=== PATIENT | male | born 1945 | race Caucasian/White ===

== ENCOUNTER 2017-12-25 19:46 | Outpatient (CLI) | payer MEDICARE, OTHER ==
--- NOTE | 2017-12-26 08:39 | Ultrasound Report ---
Procedure Date: 12/25/2017 Accession Number: [id number] / [id number] Procedure: US - Duplex Ext Veins Left CPT Code: FULL RESULT: EXAM: LEFT LOWER EXTREMITY VENOUS ULTRASOUND EXAM DATE: 12/25/2017 08:18 PM. CLINICAL HISTORY: LEFT CALF PAIN. COMPARISON: None. TECHNIQUE: Real-time sonographic vascular imaging was performed by the bilingual trainer through the lower extremity utilizing both color-flow and Doppler spectral analysis. Multiple financial service representative static images were saved for review. FINDINGS: Common Femoral Vein (CFV): Normal. CFV-GSV Junction: Normal. Profunda Femoral Vein (PFV): Normal. Femoral Vein (FV) Prox: Normal. Femoral Vein (FV) Mid: Normal. Femoral Vein (FV) Dist: Normal. Popliteal Vein: Normal. Posterior Tibial Veins: Normal. Peroneal Veins: Normal. Contralateral Side CFV: Normal. Other: None. IMPRESSION: No evidence for deep venous thrombosis. RADIA
== END 2017-12-25 19:47 | disposition home or self-care (01) ==
LOC: DI 19:46
PROVIDERS: ATTEND Nurse Practitioner Family
DX: M79.662 Pain in left lower leg (principal)

== ENCOUNTER 2018-08-14 16:04 | Emergency (ER) | payer MEDICARE, OTHER ==
[2018-08-14] MEDS ORDERED: HYDROcod/ACETAM 5/325 MG TABLET PO STA (16:36)
--- NOTE | 2018-08-14 16:38 | ED Physician Documentation ---
PD HPI LOWER EXT INJURY - Stated complaint Stated Complaint: R LEG PX - Chief complaint Chief Complaint: Ext Problem - History obtained from History obtained from: Patient - History of Present Illness PD HPI LOW EXT INJURY LOCATION: Other (He had some mild discomfort in his right leg over the last 24 hours but he was going up some stairs, just a couple of stairs to get into his house and he felt a pop, internally in the upper calf posteriorly on the right and pain was severe. He was able to walk and bear weight after that but he had to hobble. He did not fall.) Review of Systems Constitutional: reports: Reviewed and negative Nose: reports: Reviewed and negative Cardiac: reports: Reviewed and negative PD PAST MEDICAL HISTORY - Past Medical History Cardiovascular: Hypertension, High cholesterol, Coronary artery disease, [place] Respiratory: Sleep apnea, CPAP use Endocrine/Autoimmune: None GI: GERD, Hiatal hernia : None HEENT: None Psych: Anxiety Musculoskeletal: Chronic back pain Derm: None - Past Surgical History Past Surgical History: Yes General: Appendectomy, Hiatal hernia repair Cardiovascular: CABG, Coronary stent Derm: Skin cancer surgery - Present Medications Home Medications: Ambulatory Orders Medication Instructions Recorded Confirmed HYDROcod/ACETAM 5/325 [Vicodin 1 each PO PRN PRN 09/06/13 08/14/18 5/325] Lisinopril [Zestril] 0.5 tab PO BID 09/06/13 08/14/18 Nitroglycerin 0.4 mg SL PRN PRN 03/17/14 08/14/18 Metoprolol Tartrate 25 mg PO BID #30 tablet 03/25/14 08/14/18 Aspirin 81 mg PO DAILY 08/14/18 08/14/18 Atorvastatin [Lipitor] 8 tab PO QPM 08/14/18 08/14/18 Hydrocodone/Acetaminophen 1 - 2 each PO Q6H PRN #14 tablet 08/14/18 [Hydrocodon-Acetaminophen 5-325] Isosorbide Mononitrate ER [Imdur] 30 mg PO DAILY 08/14/18 08/14/18 Loratadine 10 mg PO PRN PRN 08/14/18 08/14/18 Metoprolol Succinate 50 mg PO QPM 08/14/18 08/14/18 Naproxen 250 mg PO PRN PRN 08/14/18 08/14/18 Pantoprazole [Protonix] 40 mg PO BID 08/14/18 08/14/18 Sertraline [Zoloft] 50 mg PO QPM 08/14/18 08/14/18 - Allergies Allergies/Adverse Reactions: Allergies Allergy/AdvReac Type Severity Reaction Status Date / Time clopidogrel bisulfate * Allergy Severe Respiratory Verified 08/14/18 16:15 [From Plavix] lovastatin Allergy Respiratory Verified 08/14/18 16:15 morphine Allergy Nausea Verified 08/14/18 16:15 - Social History Does the pt smoke?: No Smoking Status: Never smoker Does the pt drink ETOH?: No Does the pt have substance abuse?: No - Immunizations Immunizations are current?: Yes Immunizations: TDAP current <10years - POLST Patient has POLST: No PD ED PE NORMAL - Vitals Vital signs reviewed: Yes - General General: Alert and oriented X 3, No acute distress - Extremities Extremities: Other (Mild tenderness to the upper calf posteriorly. There is no bony tenderness anteriorly or the knee or ankle I am unable to palpate pulses in the right foot, but I am able to Doppler monophasic waveforms in the DP and PT.) - Neuro Neuro: Alert and oriented X 3, Normal speech Results - Vitals Vitals: Vital Signs - 24 hr 08/14/18 08/14/18 08/14/18 16:09 16:28 16:40 Temperature 36.2 C L Heart Rate 38 L 75 71 Respiratory 18 18 Rate Blood Pressure 134/68 H 156/79 H O2 Saturation 96 97 96 08/14/18 18:17 Temperature 36.3 C L Heart Rate 63 Respiratory 24 Rate Blood Pressure 161/78 H O2 Saturation 96 Oxygen O2 Source Room air - Rads (name of study) Right leg ultrasound and tib-fib x-ray Radiology: EMP read contemporaneously (Both negative) Departure - Departure Disposition: 01 Home, Self Care Clinical Impression: Muscle strain of right lower leg Qualifiers: Encounter type: initial encounter Qualified Code(s): S86.911A - Strain of unspecified muscle(s) and tendon(s) at lower leg level, right leg, initial encounter Condition: Good Record reviewed to determine appropriate education?: Yes Instructions: ED Strain Muscle Ext Prescriptions: Hydrocodone/Acetaminophen [Hydrocodon-Acetaminophen 5-325] 1 - 2 each PO Q6H PRN #14 tablet PRN Reason: pain Comments: The x-ray is negative for bony problem and the ultrasound was negative for clot. Follow-up with your doctor in 2 days for recheck, consider physical therapy and orthopedic consultation if not improving. Your blood pressure was elevated today on check into the emergency department. This does not mean that you have hypertension, it is a common phenomenon to come to the emergency department and have elevated blood pressure. I recommend that you see your primary care physician within the week to have it rechecked when you are feeling better.
--- NOTE | 2018-08-14 17:36 | XRAY Report ---
Reason: leg pain Procedure Date: 08/14/2018 Accession Number: [id number] / [id number] Procedure: XR - Tib/Fib RT CPT Code: FULL RESULT: EXAM: RIGHT TIBIA/FIBULA RADIOGRAPHY EXAM DATE: 08/14/2018 05:12 PM. CLINICAL HISTORY: Leg pain. COMPARISON: None. TECHNIQUE: 2 views. FINDINGS: Bones: Normal. No fracture or bone lesion. Joints: The visualized knee and ankle joints are normal. No effusions. Soft Tissues: Normal. No soft tissue swelling. IMPRESSION: Normal tibia/fibula radiography. [facility]
--- NOTE | 2018-08-14 18:34 | Ultrasound Report ---
Reason: leg pain Procedure Date: 08/14/2018 Accession Number: [id number] / [id number] Procedure: US - Duplex Ext Veins Right CPT Code: FULL RESULT: EXAM: RIGHT LOWER EXTREMITY VENOUS ULTRASOUND EXAM DATE: 08/14/2018 06:04 PM. CLINICAL HISTORY: Leg pain. COMPARISON: None. TECHNIQUE: Real-time sonographic vascular imaging was performed by the hassock maker through the lower extremity utilizing both color-flow and Doppler spectral analysis. Multiple employee's representative static images were saved for review. FINDINGS: Common Femoral Vein (CFV): Normal. CFV-GSV Junction: Normal. Profunda Femoral Vein (PFV): Normal. Femoral Vein (FV) Prox: Normal. Femoral Vein (FV) Mid: Normal. Femoral Vein (FV) Dist: Normal. Popliteal Vein: Normal. Posterior Tibial Veins: Normal. Peroneal Veins: Normal. Contralateral Side CFV: Normal. Other: None. IMPRESSION: No evidence for deep venous thrombosis. [facility]
[2018-08-14 19:44] VITALS: BP 185/94
== END 2018-08-14 20:05 | disposition home or self-care (01) ==
LOC: ED 16:04
DX: S86.911A Strain of unspecified muscle(s) and tendon(s) at lower leg level, right leg, initial encounter (principal); X58.XXXA Exposure to other specified factors, initial encounter; Y93.39 Activity, other involving climbing, rappelling and jumping off; Y92.008 Other place in unspecified non-institutional (private) residence as the place of occurrence of the external cause; I10 Essential (primary) hypertension; Z79.82 Long term (current) use of aspirin
CPT/HCPCS: 73590; 93971; 99283; A9270

== ENCOUNTER 2018-12-18 11:32 | Outpatient (CLI) | payer MEDICARE, OTHER ==
[2018-12-18 11:50] LABS: CALCIUM 9.1 mg/dL (8.5-10.3)
== END 2018-12-18 11:33 | disposition home or self-care (01) ==
LOC: LAB 11:32
PROVIDERS: ATTEND Internal Medicine Cardiovascular Disease
DX: I10 Essential (primary) hypertension (principal)
CPT/HCPCS: 36415; 80048

== ENCOUNTER 2019-11-14 15:33 | Outpatient (CLI) | payer MEDICARE, OTHER ==
[2019-11-14 16:04] LABS: CALCIUM 9.1 mg/dL (8.5-10.3)
== END 2019-11-14 15:34 | disposition home or self-care (01) ==
LOC: LAB 15:33
PROVIDERS: ATTEND Internal Medicine Cardiovascular Disease
DX: I25.10 Atherosclerotic heart disease of native coronary artery without angina pectoris (principal)
CPT/HCPCS: 36415; 80048

== ENCOUNTER 2019-12-18 10:48 | Outpatient (CLI) | payer MEDICARE, OTHER ==
[2019-12-18 15:46] LABS: HB2 TOTAL 13.9 g/dL; HEMOGLOBIN A1C 0.82 g/dL; HEMOGLOBIN A1C % 7.5 % (4.6-6.2)
[2019-12-18 16:07] LABS: ALBUMIN 4.1 g/dL (3.2-5.5); ALBUMIN/GLOBULIN RATIO 1.2 (1.0-2.2); ALKALINE PHOSPHATASE 101 IU/L (42-121); ALT ALANINE AMINOTRANSFERASE 32 IU/L (10-60); AST ASPARTATE AMINOTRANSFERASE 21 IU/L (10-42); BILIRUBIN,TOTAL 0.9 mg/dL (0.2-1.0); BUN - BLOOD UREA NITROGEN 22 mg/dL (6-20); CALCIUM 9.1 mg/dL (8.5-10.3); CARBON DIOXIDE - CO2 27 mmol/L (21-32); CHLORIDE 105 mmol/L (101-111); CHOL/HDL RATIO 3.2 (<5.0); CHOLESTEROL 112 mg/dL; CREATININE 1.1 mg/dL (0.6-1.2); GLUCOSE 135 mg/dL (70-100); HDL CHOLESTEROL 35 mg/dL; LDL CHOLESTEROL,CALCULATED 62 mg/dL; LDL/HDL RATIO 1.8 (<3.6); SODIUM 137 mmol/L (135-145); TOTAL PROTEIN 7.5 g/dL (6.7-8.2); VLDL CHOLESTEROL 15 mg/dL
== END 2019-12-18 10:49 | disposition home or self-care (01) ==
LOC: LAB.S 10:48
PROVIDERS: ATTEND Family Medicine
DX: E78.2 Mixed hyperlipidemia (principal); E11.9 Type 2 diabetes mellitus without complications; I10 Essential (primary) hypertension
CPT/HCPCS: 36415; 80053; 80061; 83036; 83721

== ENCOUNTER 2020-02-14 15:46 | Outpatient (CLI) | payer MEDICARE, OTHER | END 2020-02-14 15:47 | disposition short-term general hospital (02) | LOC: EMS 15:46 | PROVIDERS: ATTEND Surgery | DX: R07.9 Chest pain, unspecified (principal); R42 Dizziness and giddiness | CPT/HCPCS: A0425; A0427 ==

== ENCOUNTER 2020-10-26 16:10 | Emergency (ER) | payer MEDICARE, OTHER ==
[2020-10-26 17:10] LABS: BASOPHILS # (AUTO) 0.1 10^3/uL (0.0-0.1); BASOPHILS % (AUTO) 0.5 %; EOSINOPHILS # (AUTO) 0.1 10^3/uL (0.0-0.7); HGB - HEMOGLOBIN 10.3 g/dL (14.0-18.0); LYMPHOCYTES # (AUTO) 1.9 10^3/uL (1.5-3.5); LYMPHOCYTES % (AUTO) 19.5 %; MEAN CORPUSCULAR HEMOGLOBIN 31.9 pg (27.0-31.0); MEAN CORPUSCULAR HGB CONC 33.2 g/dL (32.0-36.0); MEAN PLATELET VOLUME 10.8 fL (7.4-11.4); MONOCYTES # (AUTO) 0.8 10^3/uL (0.0-1.0); NEUTROPHILS # (AUTO) 6.9 10^3/uL (1.5-6.6); NEUTROPHILS % (AUTO) 69.8 %; PLT - PLATELET COUNT 250 10^3/uL (130-450); RED BLOOD COUNT 3.23 10^6/uL (4.70-6.10); RED CELL DISTRIBUTION WIDTH 13.2 % (12.0-15.0); WHITE BLOOD COUNT 9.9 x10^3/uL (4.8-10.8)
[2020-10-26 17:53] LABS: ALBUMIN/GLOBULIN RATIO 1.4 (1.0-2.2); BILIRUBIN,TOTAL 0.9 mg/dL (0.2-1.0); CALCIUM 9.1 mg/dL (8.5-10.3); CREATININE 1.3 mg/dL (0.6-1.2); TOTAL PROTEIN 6.9 g/dL (6.7-8.2)
[2020-10-26] MEDS ORDERED: SODIUM CHLORIDE 0.9% 1,000 ML IV STA (18:52)
[2020-10-26] MEDS ORDERED: IOPAMIDOL-300 100 ML VIAL ONE (19:00)
[2020-10-26 19:29] LABS: FECAL OCCULT BLOOD (FIT) POSITIVE (NEGATIVE)
[2020-10-26 20:10] LABS: BILIRUBIN,URINE NEGATIVE (NEGATIVE); GLUCOSE, URINE (UA) NEGATIVE (NEGATIVE); KETONES,URINE (UA) NEGATIVE (NEGATIVE); LEUKOCYTE ESTERASE, URINE NEGATIVE (NEGATIVE); NITRITE,URINE NEGATIVE (NEGATIVE); OCCULT BLOOD,URINE NEGATIVE (NEGATIVE); PROTEIN,URINE NEGATIVE (NEGATIVE); UROBILINOGEN,URINE 0.2 (NORMAL) E.U./dL (NORMAL)
[2020-10-26] MEDS ORDERED: IOPAMIDOL-300 100 ML VIAL IVP ONE (20:12)
[2020-10-26 20:17] LABS: CLARITY,URINE CLEAR (CLEAR)
--- NOTE | 2020-10-26 20:43 | CT Report ---
PROCEDURE: Abdomen/Pelvis W INDICATIONS: s/p colonoscopy with black tarry stool CONTRAST: IV CONTRAST: Isovue 300 ml: 100 PO CONTRAST: *NO PO CONTRAST TECHNIQUE: After the administration of intravenous contrast, 5 mm thick sections acquired from the diaphragms to the symphysis. 5 mm thick coronal and sagittal reformats were acquired. For radiation dose reducti on, the following was used: automated exposure control, adjustment of mA and/or kV according to ronda ent size. COMPARISON: CT abdomen pelvis 03/15/2014 FINDINGS: Image quality: Excellent. ABDOMEN: Lung bases: Calcified left lower lobe granuloma. Heart size is enlarged. Solid organs: Liver and spleen are normal in size and enhancement. Gallbladder is unremarkable. Bi liary system is non dilated. Pancreas enhances normally. Unchanged appearance of small nodularity wi thin the left adrenal gland. Kidneys demonstrate normal size and enhancement, without hydronephrosis. Peritoneum and bowel: Bowel loops demonstrate normal wall thickness and caliber. No free fluid or a ir. Colonic diverticula are present without inflammatory change. Nodes and vessels: No retroperitoneal or mesenteric adenopathy by size criteria. Aorta and inferior vena cava are normal in size. Miscellaneous: No ventral hernias. Mild hiatal hernia. PELVIS: Genitourinary: Bladder wall thickness is normal. Miscellaneous: No inguinal hernias or adenopathy. Bones: No suspicious bony lesions. Unchanged L1 compression deformity. IMPRESSION: 1. Diverticulosis. 2. No free air or free fluid. Reviewed by: Cailin Espinoza MD on 10/26/2020 8:41 PM PDT Approved by: Cailin Espinoza MD on 10/26/2020 8:41 PM PDT Station ID: [id number]
[2020-10-26 22:15] VITALS: BP 107/56
--- NOTE | 2020-10-26 23:00 | ED Physician Documentation ---
History of Present Illness - Stated complaint Stated Complaint: fall,dizzy,black stool,soa,blurry vision - Chief complaint Chief Complaint: Neuro - History obtained from History obtained from: Patient - Additonal information Additional information: 75yM with pmh mi s/p cabg and stents, dm2, cva, p/w lightheadedness intermittent over the past 2 days as well as black tarry stools and diarrhea since having a colonoscopy last monday. patient had [facility] done at [facility]. he states he became lightheaded this afternoon and his legs gave out so that he went to the floor on his bottom. denies injury or HT. denies cp, sob n/v/fever. Review of Systems Ten Systems: 10 systems reviewed and negative Constitutional: denies: Fever Cardiac: denies: Chest pain / pressure Respiratory: denies: Dyspnea GI: reports: Diarrhea, Bloody / black stool. denies: Abdominal Pain, Nausea PD PAST MEDICAL HISTORY - Past Medical History Cardiovascular: Hypertension, High cholesterol, Coronary artery disease, [place] Respiratory: Sleep apnea, CPAP use Endocrine/Autoimmune: None GI: GERD, Hiatal hernia : None HEENT: None Psych: Anxiety Musculoskeletal: Osteoarthritis, Chronic back pain Derm: None - Past Surgical History Past Surgical History: Yes General: Appendectomy, Hiatal hernia repair Cardiovascular: CABG, Coronary stent Derm: Skin cancer surgery - Present Medications Home Medications: Ambulatory Orders Medication Instructions Recorded Confirmed lisinopriL [Zestril] 40 mg PO BID 09/06/13 10/26/20 Nitroglycerin 0.6 mg SL PRN PRN 03/17/14 10/26/20 Aspirin 81 mg PO DAILY 08/14/18 10/26/20 Atorvastatin [Lipitor] 80 mg PO QPM 08/14/18 10/26/20 Isosorbide Mononitrate ER [Imdur] 120 mg PO DAILY 08/14/18 10/26/20 Loratadine 10 mg PO PRN PRN 08/14/18 10/26/20 Metoprolol Succinate 50 mg PO BID 08/14/18 10/26/20 Naproxen 250 mg PO PRN PRN 08/14/18 10/26/20 Pantoprazole [Protonix] 40 mg PO BID 08/14/18 10/26/20 Sertraline [Zoloft] 50 mg PO QPM 08/14/18 10/26/20 Furosemide 20 mg PO DAILY 12/20/19 10/26/20 Metformin HCl 500 mg PO BIDWM 12/20/19 10/26/20 Ticagrelor [Brilinta] 90 mg PO BID 12/20/19 10/26/20 Gabapentin [Gralise] 1 tab PO BID 10/26/20 10/26/20 - Allergies Allergies/Adverse Reactions: Allergies Allergy/AdvReac Type Severity Reaction Status Date / Time clopidogrel bisulfate * Allergy Severe Respiratory Verified 10/26/20 16:33 [From Plavix] benazepril [From Lotensin] Allergy Anaphylaxis Verified 10/26/20 16:33 lovastatin Allergy Respiratory Verified 10/26/20 16:33 morphine Allergy Nausea Verified 10/26/20 16:33 - Social History Does the pt smoke?: No Smoking Status: Never smoker Does the pt drink ETOH?: No Does the pt have substance abuse?: No - Immunizations Immunizations are current?: Yes Immunizations: TDAP current <10years - POLST Patient has POLST: No PD ED PE NORMAL - Vitals Vital signs reviewed: Yes - General General: Alert and oriented X 3, No acute distress, Well developed/nourished - HEENT HEENT: Atraumatic, PERRL, EOMI - Neck Neck: Supple, no meningeal sign - Cardiac Cardiac: RRR - Respiratory Respiratory: No respiratory distress, Clear bilaterally - Abdomen Abdomen: Non tender, Non distended - Rectal Rectal: Other (dark brown stool on exam. FOBT+) - Derm Derm: Normal color, Warm and dry - Extremities Extremities: No deformity - Neuro Neuro: Alert and oriented X 3 - Psych Psych: Normal mood, Normal affect Results - Vitals Vitals: Vital Signs - 24 hr 10/26/20 10/26/20 10/26/20 16:28 17:44 20:07 Temperature 35.9 C L Heart Rate 66 59 L 60 Respiratory 14 13 20 Rate Blood Pressure 108/63 112/56 L 105/51 L O2 Saturation 98 98 99 10/26/20 22:14 Temperature Heart Rate 61 Respiratory 16 Rate Blood Pressure 107/56 L O2 Saturation 98 Oxygen O2 Source Room air - Labs Labs: Laboratory Tests 10/26/20 10/26/20 10/26/20 16:58 16:58 18:54 WBC 9.9 RBC 3.23 L Hgb 10.3 L Hct 31.0 L MCV 96.0 H MCH 31.9 H MCHC 33.2 RDW 13.2 Plt Count 250 MPV 10.8 Neut # (Auto) 6.9 H Lymph # (Auto) 1.9 [place] # (Auto) 0.8 Eos # (Auto) 0.1 Baso # (Auto) 0.1 Absolute Nucleated RBC 0.00 Nucleated RBC % 0.0 Sodium 137 Potassium 4.0 Chloride 104 Carbon Dioxide 24 Anion Gap 9.0 BUN 42 H Creatinine 1.3 H Estimated GFR (MDRD) 54 L Glucose 149 H Calcium 9.1 Total Bilirubin 0.9 AST 22 ALT 34 Alkaline Phosphatase 69 Total Protein 6.9 Albumin 4.0 Globulin 2.9 Albumin/Globulin Ratio 1.4 Lipase 35 Urine Color Urine Clarity Urine pH Ur Specific [place] Urine Protein Urine Glucose (UA) Urine Ketones Urine Occult Blood Urine Nitrite Urine Bilirubin Urine Urobilinogen Ur Leukocyte Esterase Ur Microscopic Review Urine Culture Comments Stl Occult Blood (IFOB) POSITIVE A 10/26/20 19:19 WBC RBC Hgb Hct MCV MCH MCHC RDW Plt Count MPV Neut # (Auto) Lymph # (Auto) [place] # (Auto) Eos # (Auto) Baso # (Auto) Absolute Nucleated RBC Nucleated RBC % Sodium Potassium Chloride Carbon Dioxide Anion Gap BUN Creatinine Estimated GFR (MDRD) Glucose Calcium Total Bilirubin AST ALT Alkaline Phosphatase Total Protein Albumin Globulin Albumin/Globulin Ratio Lipase Urine Color YELLOW Urine Clarity CLEAR Urine pH 5.0 Ur Specific [place] 1.020 Urine Protein NEGATIVE Urine Glucose (UA) NEGATIVE Urine Ketones NEGATIVE Urine Occult Blood NEGATIVE Urine Nitrite NEGATIVE Urine Bilirubin NEGATIVE Urine Urobilinogen 0.2 (NORMAL) Ur Leukocyte Esterase NEGATIVE Ur Microscopic Review NOT INDICATED Urine Culture Comments NOT INDICATED Stl Occult Blood (IFOB) PD MEDICAL DECISION MAKING - ED course ED course: 75yM presents with dizziness after colonoscopy on monday during which he had a polyp removed. patient had mild anemia in the emergency department with +FOBT. vital signs stable. patient asymptomatic in the ED. shared decision made to discharge home with primary care follow up as well as followup with the physician who did his colonoscopy. Patient states he will see his doctor in the AM. Strict return precautions given. Called the next morning for a follow up and he continues to be asymptomatic aside from mild lightheadedness. one episode of dark stool this morning. He has f/u appointment at 9:20am with Dr. Johnathan Self. I called Dr. Self's office to let him know of the patient's ED visit yesterday, his hemoglobin, and his mildly low diastolic blood pressure readings. Dr. Self says he should be able to get him in for outpatient endoscopy this week but if he has any hypotension in clinic or if expeditious outpatient endoscopy is not available he will send him back to us in the ED. Dr. albert is working today and I discussed with him as well to look out for the patient. Departure - Departure Disposition: 01 Home, Self Care Clinical Impression: Anemia, Black tarry stools Condition: Stable Instructions: ED Bleed UGI Stable Follow-Up: Randal Mckeon MD [Provider Admit Priv/Credential] - Comments: You were seen in the emergency department for black tarry stool and a drop in your hemoglobin. You should follow-up with your primary doctor tomorrow morning. You likely will need referral to gastroenterology for endoscopy. Please return to the emergency department if you have any of the symptoms that we discussed or if you have any new or worsening symptoms or other concerns. Discharge Date/Time: 10/26/20 23:08
== END 2020-10-26 23:08 | disposition home or self-care (01) ==
LOC: ED 16:10
DX: D64.9 Anemia, unspecified (principal); R19.5 Other fecal abnormalities; E11.9 Type 2 diabetes mellitus without complications; Z95.1 Presence of aortocoronary bypass graft; Z95.5 Presence of coronary angioplasty implant and graft; I10 Essential (primary) hypertension; I25.10 Atherosclerotic heart disease of native coronary artery without angina pectoris; I25.2 Old myocardial infarction
CPT/HCPCS: 36415; 74177; 80053; 81003; 82274; 83690; 85025; 93005; 96360; 99283; 99284; Q9967; 81001; 87086

== ENCOUNTER 2020-10-27 11:17 | Emergency (ER) | payer MEDICARE, OTHER ==
--- NOTE | 2020-10-27 11:39 | ED Physician Documentation ---
PD HPI ABD PAIN - Stated complaint Stated Complaint: DIZZY/FALLING - Chief complaint Chief Complaint: Abd Pain - History obtained from History obtained from: Patient, Family - Additional information Additional information: 75-year-old gentleman had a colonoscopy about a month and a half ago in [place] with polypectomy. No history of ulcers but he does take naproxen and ibuprofen frequently for sciatica. He was seen last night for dark stools and feeling dizzy, CT was done showing diverticulosis but no other acute findings. Labs were done notable for a hemoglobin of 10.3 and positive fecal occult blood. Historically looking at old labs his hemoglobin was 14-16. His feels he is quite pale. He does not have more weakness than yesterday but has been dizzy short of breath and weak. No alcohol use to speak of. Review of Systems Ten Systems: 10 systems reviewed and negative Constitutional: reports: Fatigue. denies: Fever, Chills Cardiac: denies: Chest pain / pressure, Palpitations Respiratory: denies: Dyspnea, Cough PD PAST MEDICAL HISTORY - Past Medical History Cardiovascular: Hypertension, High cholesterol, Coronary artery disease, [place] Respiratory: Sleep apnea, CPAP use Endocrine/Autoimmune: None GI: GERD, Hiatal hernia : None HEENT: None Psych: Anxiety Musculoskeletal: Osteoarthritis, Chronic back pain Derm: None - Past Surgical History Past Surgical History: Yes General: Appendectomy, Hiatal hernia repair Cardiovascular: CABG, Coronary stent Derm: Skin cancer surgery - Present Medications Home Medications: Ambulatory Orders Medication Instructions Recorded Confirmed lisinopriL [Zestril] 20 mg PO BID 09/06/13 10/27/20 Nitroglycerin 0.6 mg SL PRN PRN 03/17/14 10/27/20 Aspirin 81 mg PO DAILY 08/14/18 10/27/20 Atorvastatin [Lipitor] 80 mg PO QPM 08/14/18 10/27/20 Isosorbide Mononitrate ER [Imdur] 120 mg PO DAILY 08/14/18 10/27/20 Loratadine 10 mg PO PRN PRN 08/14/18 10/27/20 Metoprolol Succinate 100 mg PO BID 08/14/18 10/27/20 Naproxen 250 mg PO PRN PRN 08/14/18 10/27/20 Pantoprazole [Protonix] 40 mg PO BID 08/14/18 10/27/20 Sertraline [Zoloft] 50 mg PO QPM 08/14/18 10/27/20 Furosemide 20 mg PO DAILY 12/20/19 10/27/20 Metformin HCl 500 mg PO DAILY PM 12/20/19 10/27/20 Ticagrelor [Brilinta] 90 mg PO BID 12/20/19 10/27/20 Gabapentin [Gralise] 300 mg PO BID 10/26/20 10/27/20 Omeprazole 40 mg PO BID #60 cap 10/27/20 - Allergies Allergies/Adverse Reactions: Allergies Allergy/AdvReac Type Severity Reaction Status Date / Time clopidogrel bisulfate * Allergy Severe Respiratory Verified 10/27/20 11:28 [From Plavix] benazepril [From Lotensin] Allergy Anaphylaxis Verified 10/27/20 11:28 lovastatin Allergy Respiratory Verified 10/27/20 11:28 morphine Allergy Nausea Verified 10/27/20 11:28 - Social History Does the pt smoke?: No Smoking Status: Never smoker Does the pt drink ETOH?: No Does the pt have substance abuse?: No - Immunizations Immunizations are current?: Yes Immunizations: TDAP current <10years - POLST Patient has POLST: No PD ED PE NORMAL - Vitals Vital signs reviewed: Yes - General General: Alert and oriented X 3, No acute distress - HEENT HEENT: PERRL, EOMI - Neck Neck: Supple, no meningeal sign, No bony TTP - Cardiac Cardiac: RRR, No murmur - Respiratory Respiratory: No respiratory distress, Clear bilaterally - Abdomen Abdomen: Normal bowel sounds, Soft, Non tender - Back Back: No CVA TTP, No spinal TTP - Derm Derm: Normal color, Warm and dry - Extremities Extremities: No edema, No calf tenderness / cord - Neuro Neuro: Alert and oriented X 3, Normal speech Results - Vitals Vitals: Vital Signs - 24 hr 10/27/20 10/27/20 11:22 11:47 Temperature 36.8 C Heart Rate 80 74 Respiratory 18 24 Rate Blood Pressure 124/72 122/61 O2 Saturation 100 98 Oxygen O2 Source Room air - EKG (time done) 1137 Rate: Rate (enter#) (68) Rhythm: NSR [place]: Normal QRS: LVH Ischemia: Q waves (inferior). No: ST elevation c/w ischemia, ST depression Computer interpretation: Agree with computer - Labs Labs: Laboratory Tests 10/27/20 10/27/20 10/27/20 11:36 11:36 11:36 WBC 9.2 RBC 3.06 L Hgb 10.0 L Hct 29.2 L MCV 95.4 H MCH 32.7 H MCHC 34.2 RDW 13.4 Plt Count 242 MPV 10.3 Neut # (Auto) 6.4 Lymph # (Auto) 1.7 [place] # (Auto) 0.8 Eos # (Auto) 0.1 Baso # (Auto) 0.1 Absolute Nucleated RBC 0.00 Nucleated RBC % 0.0 PT 13.2 H INR 1.2 Sodium Potassium Chloride Carbon Dioxide Anion Gap BUN Creatinine Estimated GFR (MDRD) Glucose Calcium Total Bilirubin AST ALT Alkaline Phosphatase Troponin I High Sens Total Protein Albumin Globulin Albumin/Globulin Ratio Lipase Blood Type O POSITIVE Blood Type Recheck Antibody Screen NEGATIVE 10/27/20 10/27/20 10/27/20 11:36 11:36 11:57 WBC RBC Hgb Hct MCV MCH MCHC RDW Plt Count MPV Neut # (Auto) Lymph # (Auto) [place] # (Auto) Eos # (Auto) Baso # (Auto) Absolute Nucleated RBC Nucleated RBC % PT INR Sodium 139 Potassium 4.2 Chloride 109 Carbon Dioxide 22 Anion Gap 8.0 BUN 30 H Creatinine 1.2 Estimated GFR (MDRD) 59 L Glucose 181 H Calcium 8.9 Total Bilirubin 0.5 AST 29 ALT 40 Alkaline Phosphatase 92 Troponin I High Sens 9.0 Total Protein 6.9 Albumin 3.8 Globulin 3.1 Albumin/Globulin Ratio 1.2 Lipase 30 Blood Type Blood Type Recheck O POSITIVE Antibody Screen PD MEDICAL DECISION MAKING - ED course ED course: 75-year-old gentleman presents with what seems like a stable upper GI bleed with basically stable H&H from yesterday. Likely due to NSAID use. He is started on a PPI and I spoke with Dr. Sparks who will see them today to schedule for EGD tomorrow. This is reasonable since his H&H and hemodynamics are stable. Departure - Departure Disposition: 01 Home, Self Care Clinical Impression: Upper GI bleeding Condition: Good Record reviewed to determine appropriate education?: Yes Instructions: ED Bleed UGI Stable Prescriptions: Omeprazole 40 mg PO BID #60 cap Comments: Dr Sparks would like to see you in his office today at 1:30 PM. And will likely schedule you for endoscopy for tomorrow. Stop naproxen/ibuprofen and other nonsteroidal anti-inflammatory drugs. Khris Sparks [address] [place], [place] [id number]
[2020-10-27] MEDS ORDERED: PANTOPRAZOLE 40 MG VIAL IVP STA (11:40)
[2020-10-27 11:45] LABS: BASOPHILS # (AUTO) 0.1 10^3/uL (0.0-0.1); BASOPHILS % (AUTO) 0.5 %; EOSINOPHILS # (AUTO) 0.1 10^3/uL (0.0-0.7); EOSINOPHILS % (AUTO) 1.5 %; HCT - HEMATOCRIT 29.2 % (42.0-52.0); LYMPHOCYTES # (AUTO) 1.7 10^3/uL (1.5-3.5); LYMPHOCYTES % (AUTO) 18.6 %; MEAN CORPUSCULAR HEMOGLOBIN 32.7 pg (27.0-31.0); MEAN CORPUSCULAR HGB CONC 34.2 g/dL (32.0-36.0); MEAN CORPUSCULAR VOLUME 95.4 fL (80.0-94.0); MEAN PLATELET VOLUME 10.3 fL (7.4-11.4); MONOCYTES # (AUTO) 0.8 10^3/uL (0.0-1.0); MONOCYTES % (AUTO) 8.4 %; NEUTROPHILS # (AUTO) 6.4 10^3/uL (1.5-6.6); NEUTROPHILS % (AUTO) 69.8 %; PLT - PLATELET COUNT 242 10^3/uL (130-450); RED BLOOD COUNT 3.06 10^6/uL (4.70-6.10); RED CELL DISTRIBUTION WIDTH 13.4 % (12.0-15.0); WHITE BLOOD COUNT 9.2 x10^3/uL (4.8-10.8)
[2020-10-27 11:48] VITALS: BP 122/61
[2020-10-27 11:50] LABS: INR 1.2 (0.8-1.2); PT - PROTHROMBIN TIME 13.2 secs (9.9-12.6)
[2020-10-27 12:02] LABS: ALBUMIN 3.8 g/dL (3.2-5.5); ALBUMIN/GLOBULIN RATIO 1.2 (1.0-2.2); BILIRUBIN,TOTAL 0.5 mg/dL (0.2-1.0); CALCIUM 8.9 mg/dL (8.5-10.3); CREATININE 1.2 mg/dL (0.6-1.2); POTASSIUM 4.2 mmol/L (3.5-5.0); TOTAL PROTEIN 6.9 g/dL (6.7-8.2)
[2020-10-27] MEDS ORDERED: SODIUM CHLORIDE 0.9% 1,000 ML IV STA (12:15)
== END 2020-10-27 13:25 | disposition home or self-care (01) ==
LOC: ED 11:17
DX: K92.2 Gastrointestinal hemorrhage, unspecified (principal); Z79.1 Long term (current) use of non-steroidal anti-inflammatories (NSAID); I10 Essential (primary) hypertension; I25.10 Atherosclerotic heart disease of native coronary artery without angina pectoris; Z95.1 Presence of aortocoronary bypass graft; I25.2 Old myocardial infarction; Z95.5 Presence of coronary angioplasty implant and graft
CPT/HCPCS: 36415; 80053; 83690; 84484; 85025; 85610; 86850; 86900; 86901; 93005; 96374; 99285

== ENCOUNTER 2020-10-28 09:40 | Day surgery (SDC) | payer MEDICARE, OTHER ==
[2020-10-28] MEDS ORDERED: LACTATED RINGERS 1,000 ML IV ONE ×2 (10:36→12:17)
--- NOTE | 2020-10-28 11:11 | ANESTHESIA ---
Pre-Anesthesia VS, & Labs - Diagnosis melana, Anemia - Procedure EGD Vital Signs: Temp Pulse Resp BP Pulse Ox 36.6 C 57 L 18 122/73 100 10/28/20 10:36 10/28/20 10:36 10/28/20 10:36 10/28/20 10:36 10/28/20 10:36 Height: 5 ft 9 in Weight (kg): 114.8 kg Body Mass Index: 37.3 BMI Classification: Obese - NPO >8 hours - Lab Results Lab results reviewed: Yes Home Medications and Allergies lisinopriL [Zestril] 20 mg PO BID 09/06/13 Nitroglycerin 0.6 mg SL PRN PRN 03/17/14 Aspirin 81 mg PO DAILY 08/14/18 Atorvastatin [Lipitor] 80 mg PO QPM 08/14/18 Isosorbide Mononitrate ER [Imdur] 120 mg PO DAILY 08/14/18 Loratadine 10 mg PO PRN PRN 08/14/18 Metoprolol Succinate 100 mg PO BID 08/14/18 Naproxen 250 mg PO PRN PRN 08/14/18 Pantoprazole [Protonix] 40 mg PO BID 08/14/18 Sertraline [Zoloft] 50 mg PO QPM 08/14/18 Furosemide 20 mg PO DAILY 12/20/19 Metformin HCl 500 mg PO DAILY PM 12/20/19 Ticagrelor [Brilinta] 90 mg PO BID 12/20/19 Gabapentin [Gralise] 300 mg PO BID 10/26/20 Allergies/Adverse Reactions: Allergies Allergy/AdvReac Type Severity Reaction Status Date / Time clopidogrel bisulfate * Allergy Severe Respiratory Verified 10/28/20 10:56 [From Plavix] benazepril [From Lotensin] Allergy Anaphylaxis Verified 10/28/20 10:56 lovastatin Allergy Respiratory Verified 10/28/20 10:56 morphine Allergy Nausea Verified 10/28/20 10:56 Anes History & Medical History - Anesthetic History Anesthesia Complications: reports: No previous complications Family history of Anesthesia Complications: Denies Family history of Malignant Hyperthermia: Denies - Medical History Cardiovascular: reports: Congestive heart failure, Hypertension, High cholesterol, Coronary artery disease (multiple stents last being over 1 year ago. Patient reports no chest pains.), Other Pulmonary: reports: Shortness of breath, Sleep apnea (BiPAP use) Gastrointestinal: reports: Ulcers, Hiatal hernia, Diverticulitis Urinary: reports: Benign prostate hypertrophy Neuro: reports: None Musculoskeletal: reports: Chronic back pain Endocrine/Autoimmune: reports: Type 2 diabetes Blood Disorders: reports: None Skin: reports: Eczema Smoking Status: Never smoker - Surgical History General: reports: Appendectomy, Hiatal hernia repair, Other Cardiothoracic: reports: CABG, Angioplasty Orthopedic: reports: Spine surgery Dermatologic: reports: Skin cancer surgery Exam General: Alert, Oriented x3, Cooperative, No acute distress Dental: WNL Mouth Openin Fingerbreadth Neck Mobility: Limited Mallampati classification: IV Respiratory: Lungs clear, Normal breath sounds, No respiratory distress, No accessory muscle use Cardiovascular: Regular rate, Normal S1, Normal S2, No murmurs Plan Anesthesia Type: General, Total IV Consent for Procedure(s) Verified and Reviewed: Yes Code Status: Attempt Resuscitation ASA classification: 3-Severe systemic disease Is this case an emergency?: No
[2020-10-28] MEDS ORDERED: ATROPINE ABBOJECT 1 MG/10 ML SYRINGE IVP PRN (11:12)
[2020-10-28] MEDS ORDERED: MORPHINE 2 MG/ML CARPUJECT IVP PRN (11:12)
[2020-10-28] MEDS ORDERED: METOCLOPRAMIDE 10 MG/2 ML VIAL IVP PRN (11:12)
[2020-10-28] MEDS ORDERED: NALOXONE 0.4 MG/ML VIAL IVP PRN (11:12)
[2020-10-28] MEDS ORDERED: HYDROmorphone 0.5 MG/0.5 ML SYRINGE IVP PRN (11:12)
[2020-10-28] MEDS ORDERED: fentaNYL 100 MCG/2 ML VIAL IVP PRN (11:12)
[2020-10-28] MEDS ORDERED: ONDANSETRON 4 MG/2 ML VIAL IVP PRN (11:12)
[2020-10-28] MEDS ORDERED: ePHEDrine 50 MG/ML VIAL IVP PRN (11:12)
[2020-10-28 11:36] LABS: B. PARAPERTUSSIS- RESP PCR PAN NOT DETECTED; B. PERTUSSIS- RESP PCR PANEL NOT DETECTED; C. PNEUMONIAE- RESP PCR PANEL NOT DETECTED; CORONAVIRUS 229E-RESP PCR NOT DETECTED; CORONAVIRUS HKU1-RESP PCR NOT DETECTED; CORONAVIRUS NL63-RESP PCR NOT DETECTED; CORONAVIRUS OC43-RESP PCR NOT DETECTED; HUMAN METAPNEUMOVIRUS NOT DETECTED; INFLUENZA A- RESP PCR PANEL NOT DETECTED; INFLUENZA B - RESP PCR PANEL NOT DETECTED; M. PNEUMONIAE- RESP PCR PANEL NOT DETECTED; PARAINFLUENZA VIRUS 1 NOT DETECTED; PARAINFLUENZA VIRUS 2 NOT DETECTED; PARAINFLUENZA VIRUS 3 NOT DETECTED; PARAINFLUENZA VIRUS 4 NOT DETECTED; RHINOVIRUS/ENTEROVIRUS NOT DETECTED; RSV- RESP PCR PANEL NOT DETECTED; SARS-CoV-2 -RESP PCR PANEL NOT DETECTED
[2020-10-28] MEDS ORDERED: LIDOCAINE-MPF 2% 5 ML VIAL ONE (11:43)
[2020-10-28] MEDS ORDERED: PROPOFOL 1000 MG/100 ML 1,000 MG/100 ML BOTTLE IV ONE (11:43)
[2020-10-28] MEDS ORDERED: LACTATED RINGERS 1,000 ML IV SCH (12:00)
[2020-10-28 12:41] VITALS: BP 129/72
--- NOTE | 2020-10-28 12:41 | ANESTHESIA POST OP EVALUATION ---
Anesthesia Post Eval - Post Anesthesia Eval Vitals: Last Vital Signs Temp 36.5 C 10/28/20 12:40 Pulse 63 10/28/20 12:40 Resp 15 10/28/20 12:40 BP 129/72 10/28/20 12:40 Pulse Ox 100 10/28/20 12:40 CV Function Including HR & BP: Stable Pain Control: Satisfactory Nausea & Vomiting: Negative Mental Status: Baseline Respiratory Status: Airway Patent Hydration Status: Satisfactory Anesthesia Complications: None
== END 2020-10-28 09:41 | disposition home or self-care (01) ==
LOC: SDS 09:40
PROVIDERS: ATTEND Surgery
PROC: 0DB78ZX Excision of Stomach, Pylorus, Via Natural or Artificial Opening Endoscopic, Diagnostic (ICD-10-PCS; principal; 2020-10-28 11:30)
DX: K26.4 Chronic or unspecified duodenal ulcer with hemorrhage (principal); D50.0 Iron deficiency anemia secondary to blood loss (chronic); K29.50 Unspecified chronic gastritis without bleeding; K21.9 Gastro-esophageal reflux disease without esophagitis; I25.10 Atherosclerotic heart disease of native coronary artery without angina pectoris; G47.33 Obstructive sleep apnea (adult) (pediatric); I11.0 Hypertensive heart disease with heart failure; I50.9 Heart failure, unspecified; Z20.822 Contact with and (suspected) exposure to COVID-19; E66.9 Obesity, unspecified; Z68.37 Body mass index [BMI] 37.0-37.9, adult; Z79.1 Long term (current) use of non-steroidal anti-inflammatories (NSAID); Z79.82 Long term (current) use of aspirin
CPT/HCPCS: 43239; 87631; J7120; 0202U

== ENCOUNTER 2022-12-02 09:04 | Outpatient (CLI) | payer MEDICARE, OTHER ==
--- NOTE | 2022-12-02 16:41 | CT Report ---
PROCEDURE: HEAD WO INDICATIONS: CLOSED HEAD INJURY TECHNIQUE: Noncontrast 4.5 mm thick angled axial sections acquired from the foramen magnum to the vertex. For r adiation dose reduction, the following was used: automated exposure control, adjustment of mA and/or kV according to patient size. COMPARISON: 01/29/2022 FINDINGS: Image quality: There is streak artifact seen through the skull base. CSF spaces: Basal cisterns are patent. No extra-axial fluid collections. Ventricles are normal in size and shape. Brain: No midline shift. No intracranial masses or hemorrhage. Duarte-white matter interface is norm al. Skull and face: Calvarium and visualized facial bones are intact, without suspicious lesions. Sinuses: Moderate mucosal thickening is seen within the right maxillary sinus. The paranasal sinuses otherwise are relatively clear. No significant abnormal fluid can be seen within the mastoid air cell s. IMPRESSION: No significant intracranial abnormality can be seen for age. Note is made of focal right maxillary sinus disease, which is more prominent than on the prior. Reviewed by: Poalo Marshall MD on 12/02/2022 3:40 PM AKDT Approved by: Paolo Marshall MD on 12/02/2022 3:40 PM AKDT Station ID: [id number]
== END 2022-12-02 09:05 | disposition home or self-care (01) ==
LOC: DI 09:04
PROVIDERS: ATTEND Nurse Practitioner Family
DX: J32.0 Chronic maxillary sinusitis (principal); S09.8XXA Other specified injuries of head, initial encounter

== ENCOUNTER 2023-11-15 12:26 | Emergency (ER) | payer MEDICARE, OTHER ==
[2023-11-15 13:28] LABS: BASOPHILS # (AUTO) 0.1 10^3/uL (0.0-0.1); BASOPHILS % (AUTO) 0.8 %; EOSINOPHILS # (AUTO) 0.2 10^3/uL (0.0-0.7); EOSINOPHILS % (AUTO) 2.5 %; HCT - HEMATOCRIT 43.5 % (42.0-52.0); HGB - HEMOGLOBIN 13.8 g/dL (14.0-18.0); LYMPHOCYTES # (AUTO) 1.7 10^3/uL (1.5-3.5); LYMPHOCYTES % (AUTO) 19.6 %; MEAN CORPUSCULAR HEMOGLOBIN 31.8 pg (27.0-31.0); MEAN CORPUSCULAR HGB CONC 31.7 g/dL (32.0-36.0); MEAN CORPUSCULAR VOLUME 100.2 fL (80.0-94.0); MEAN PLATELET VOLUME 10.5 fL (7.4-11.4); MONOCYTES % (AUTO) 11.3 %; NEUTROPHILS # (AUTO) 5.6 10^3/uL (1.5-6.6); NEUTROPHILS % (AUTO) 65.4 %; PLT - PLATELET COUNT 227 10^3/uL (130-450); RED BLOOD COUNT 4.34 10^6/uL (4.70-6.10); RED CELL DISTRIBUTION WIDTH 13.4 % (12.0-15.0); WHITE BLOOD COUNT 8.5 x10^3/uL (4.8-10.8)
[2023-11-15 13:50] LABS: ALBUMIN 4.3 g/dL (3.2-5.5); ALBUMIN/GLOBULIN RATIO 1.3 (1.0-2.2); BILIRUBIN,TOTAL 0.9 mg/dL (0.2-1.0); CREATININE 1.7 mg/dL (0.6-1.3); POTASSIUM 4.4 mmol/L (3.5-4.5); TOTAL PROTEIN 7.6 g/dL (6.4-8.9); TROPONIN I HIGH SENSITIVITY 10.6 ng/L (2.3-19.7)
--- NOTE | 2023-11-15 15:48 | ED Physician Documentation ---
History of Present Illness - Stated complaint Stated Complaint: RT SIDE ABD PX - Chief complaint Chief Complaint: Abd Pain - Additonal information Additional information: 78-year-old male with history of CHF, hypertension, coronary artery disease, hypercholesterolemia, type 2 diabetes, diverticulosis, hiatal hernia with surgical repair, CABG, chronic back pain, chronically anticoagulated presents emergency department note report given by way earlier and I have gone low for right upper quadrant pain. Patient said that his right upper quadrant pain started yesterday afternoon and has gotten progressively more worse. He says that he ate tomato bisque for lunch he does have history of hiatal hernia that he has had surgery on and started to experience some right upper quadrant pain. He has had no fevers or chills no nausea or vomiting. Patient describes the right upper quadrant pain to rip up his mid chest worse with any ambulation. No hypoxia, PD PAST MEDICAL HISTORY - Past Medical History Past Medical History: Yes Cardiovascular: Congestive heart failure, Hypertension, High cholesterol, Coronary artery disease, Other Respiratory: Shortness of breath, Sleep apnea Neuro: None Endocrine/Autoimmune: Type 2 diabetes GI: Ulcers, Hiatal hernia, Diverticulitis : Benign prostate hypertrophy HEENT: None Psych: Anxiety Musculoskeletal: Chronic back pain Derm: Eczema - Past Surgical History Past Surgical History: Yes General: Appendectomy, Hiatal hernia repair, Other Ortho: Spine surgery Cardiovascular: CABG, Angioplasty Derm: Skin cancer surgery - Present Medications Home Medications: Ambulatory Orders Medication Instructions Recorded Confirmed lisinopriL [Zestril] 20 mg PO BID 09/06/13 10/28/20 Nitroglycerin 0.6 mg SL PRN PRN 03/17/14 10/28/20 Aspirin 81 mg PO DAILY 08/14/18 10/28/20 Atorvastatin [Lipitor] 80 mg PO QPM 08/14/18 10/27/20 Isosorbide Mononitrate ER [Imdur] 120 mg PO DAILY 08/14/18 10/27/20 Loratadine 10 mg PO PRN PRN 08/14/18 10/28/20 Metoprolol Succinate 100 mg PO BID 08/14/18 10/28/20 Pantoprazole [Protonix] 40 mg PO BID 08/14/18 10/28/20 Sertraline [Zoloft] 50 mg PO QPM 08/14/18 10/27/20 Furosemide 20 mg PO DAILY 12/20/19 10/27/20 Metformin HCl 500 mg PO DAILY PM 12/20/19 10/28/20 Gabapentin [Gralise] 300 mg PO BID 10/26/20 10/28/20 Omeprazole 40 mg PO BID #60 cap 10/27/20 10/28/20 Acetaminophen [Acetaminophen Extra 500 mg PO BID 10/28/20 10/28/20 Strength] HYDROcod/ACETAM 5/325 [[place] 5/325] 1 tab PO Q6HR PRN 10/28/20 10/28/20 Potassium Chloride 10 meq PO DAILY 10/28/20 10/28/20 Ticagrelor [Brilinta] 90 mg PO BID 10/28/20 10/28/20 amLODIPine [Norvasc] 5 mg PO DAILY 10/28/20 10/28/20 - Allergies Allergies/Adverse Reactions: Allergies Allergy/AdvReac Type Severity Reaction Status Date / Time clopidogrel bisulfate * Allergy Severe Respiratory Verified 11/15/23 12:59 [From Plavix] benazepril [From Lotensin] Allergy Anaphylaxis Verified 11/15/23 12:59 lovastatin Allergy Respiratory Verified 11/15/23 12:59 morphine Allergy Nausea Verified 11/15/23 12:59 - Social History Does the pt smoke?: No Smoking Status: Never smoker Does the pt drink ETOH?: No Does the pt have substance abuse?: No - Immunizations Immunizations are current?: Yes Immunizations: TDAP current <10years - POLST Patient has POLST: No PD ED PE NORMAL - Vitals Vital signs reviewed: Yes - General General: Alert and oriented X 3, No acute distress, Well developed/nourished, Other (obese) - Abdomen Abdomen: Normal bowel sounds, Soft, Non distended, No organomegaly, Other (RUQ tenderness) - Back Back: No CVA TTP - Derm Derm: Normal color, Warm and dry, No rash - Extremities Extremities: No edema, No calf tenderness / cord - Psych Psych: Normal mood Results - Vitals Vitals: Vital Signs - 24 hr 11/15/23 11/15/23 11/15/23 12:54 16:00 18:14 Temperature 36.5 C Heart Rate 65 65 68 Respiratory 16 20 18 Rate Blood Pressure 127/69 124/67 127/70 O2 Saturation 97 96 92 11/15/23 20:00 Temperature Heart Rate 72 Respiratory 20 Rate Blood Pressure 118/74 O2 Saturation 93 Oxygen O2 Source Room air - Labs Labs: Laboratory Tests 11/15/23 11/15/23 13:24 13:24 WBC 8.5 RBC 4.34 L Hgb 13.8 L Hct 43.5 MCV 100.2 H MCH 31.8 H MCHC 31.7 L RDW 13.4 Plt Count 227 MPV 10.5 Neut # (Auto) 5.6 Lymph # (Auto) 1.7 Garza # (Auto) 1.0 Eos # (Auto) 0.2 Baso # (Auto) 0.1 Absolute Nucleated RBC 0.00 Nucleated RBC % 0.0 Sodium 136 Potassium 4.4 Chloride 103 Carbon Dioxide 28 Anion Gap 5.0 L BUN 21 H Creatinine 1.7 H Estimated GFR (MDRD) 39 L Glucose 129 H Calcium 10.0 Total Bilirubin 0.9 AST 18 ALT 21 Alkaline Phosphatase 59 Troponin I High Sens 10.6 Total Protein 7.6 Albumin 4.3 Globulin 3.3 Albumin/Globulin Ratio 1.3 Lipase 12 - Rads (name of study) Abdomen pelvis with contrast Relevant Findings:: Final report received, EMP independent interpretation of test, Other (No acute inflammatory processes seen abdomen pelvis sigmoid diverticulosis without diverticulitis.) Angio chest with and without Relevant Findings:: Final report received, EMP independent interpretation of test, Other (No pulmonary bolus no thoracic aortic aneurysm or dissection. Cardiomegaly no pericardial effusion small hiatal hernia) Abdomen Limited ultrasound Relevant Findings:: Final report received, EMP independent interpretation of test, Other (Limited study but no cholecystitis) PD Medical Decision Making - ED course ED course: 78-year-old male presents emergency department for right upper quadrant pain. Abdominal exam without peritoneal signs. No evidence of acute abdomen at this time. Well appearing. Limited RUQ US findings are inconclusive but not obvious cholangitis or cholecystitis. Because the patient was describing referring pain to his right upper quadrant and aortic dissection could not be ruled out so we went ahead with pursuing angio chest with and without which did not reveal any sort of pulmonary bolus or thoracic aortic aneurysm or dissection. It did reveal cardiomegaly which is already known for the patient as well as a small hiatal hernia. CT abdomen pelvis was also complete which did not reveal any acute inflammatory process seen in the abdomen or pelvis with no bowel obstruction or fully fluid or free air. No renal stones or hydronephrosis or other acute abnormalities or findings. For further evaluation and right upper quadrant ultrasound was complete and again no acute findings or abnormalities were found at that time. Labs have also been completed during this visit he has no leukocytosis, no significant anemia BUN slightly elevated at 21 GFR has dropped to 39 although this is slightly lower than previous visits due to most likely undiagnosed chronic kidney disease there is no concerns of acute kidney failure that would require patient to be hospitalized at this point in time. Less likely to represent acute pancreatitis (neg lipase), PUD (including gastric perforation), acute infectious processes (pneumonia, hepatitis, pyelonephritis), atypical appendicitis, vascular catastrophe, bowel obstruction or viscus perforation, or acute coronary syndrome. Presentation not consistent with other acute, emergent causes of abdominal pain at this time. Patient was told to follow-up with primary care provider he was given hydrocodone for pain as well as Maalox. He was given very strict ER return precautions and all questions have been answered. I am prescribing a short course of short-acting opioid pain medication for this patient. I have reviewed the patients [employer]ATIONAL [employer] OFFICER and no concerning findings were noted. I have discussed that the opioids are for short term therapy only, and will not be refilled from the ED. Departure - Departure Disposition: 01 Home, Self Care Clinical Impression: Right upper quadrant pain Instructions: Abdominal Pain, ED Abdominal Pain Unkn Cause Male Comments: Thank you for trusting us with your care and for your patience during this long ER visit. As we discussed I am not seeing any acute abnormalities or findings at this point in time on your CT scan or an ultrasound. Your labs are overall fairly normal I am not seeing any elevated white blood cell count indicative of possible infection or other significant electrolyte abnormalities. Please follow-up with your primary care provider for further evaluation and as we discussed please have a very low threshold to come back into the emergency department if your symptoms get any worse. I am prescribing a short course of narcotic pain medication for you. These are potentially dangerous and addictive medications that should be used carefully. These medications may constipate you. Take an [id number] stool softener (docusate) twice daily with plenty of water while taking these medications. If you go 24 hours without a bowel movement, take [id number] miralax, per package instructions. Do not drink or drive while taking these medications. If you received narcotic or sedating medications while in the emergency department, do not drive for 24 hours. Store this medication in a safe, secure place and out of reach of children. It is a violation of federal law to give or sell this medication to another person or to use in a manner other than prescribed. The ED will not refill narcotic prescriptions, including prescriptions lost or stolen. To dispose of unwanted medications: 1. [facility] at [address] in [place] has a medication drop box. They accept prescription medications (in pill form) Monday through Monday 9:00 a.m. to 5:00 p.m. 2. The [facility] [employer] accepts prescription medications (in pill form only) for disposal year round. Call for more information. 3. Contact the [facility] for the next [facility] sponsored prescription drug collection event. , [phone], or [phone]; Note that many narcotic pain relievers also contain Tylenol/acetaminophen. Please ensure that your total dose of acetaminophen from all sources does not exceed 3 g (3000 mg) per day. Forms: PCP List Discharge Date/Time: 11/15/23 22:02
[2023-11-15] MEDS ORDERED: iohexoL-300 100 ML VIAL ONE (16:12)
[2023-11-15] MEDS: iohexoL-300 100 ML VIAL IVP ONE (16:46)
--- NOTE | 2023-11-15 17:23 | CT Report ---
PROCEDURE: Angio Chest INDICATIONS: Pleuritic chest pain CONTRAST: 100ml [id number] TECHNIQUE: After the administration of intravenous contrast, 2 mm axial images were acquired from the pulmonary apices to the posterior costophrenic angles during the arterial phase. In addition, 1 mm lung kernel and 5 mm soft tissue kernel reconstructions were performed. 3-dimensional coronal oblique maximum int ensity projection (MIP) reformats, 8 mm axial MIP, and 5 mm coronal and sagittal MPR reformats were t hen performed through the thorax. For radiation dose reduction, the following was used: automated exp osure control, adjustment of mA and/or kV according to patient size. COMPARISON: Chest radiograph dated 01/29/2022. FINDINGS: Image quality: Excellent. Large vessels: No filling defects within the opacified pulmonary arteries, accounting for motion and contrast timing. No evidence of acute aortic syndrome or aortic aneurysm. Lungs and pleura: Dependent atelectasis in posterior aspect of bilateral lung arndt are seen. Mild c entrilobular emphysema is noted. No consolidation. No pleural effusions. No pneumothorax. No suspici ous pulmonary nodules which require follow up. Mediastinum: Heart size is enlarged. No pericardial effusion. No large vessel abnormality. No mediast inal adenopathy by size criteria. There is a small hiatal hernia. Chest wall and lower neck: Median sternotomy wires and surgical clips are seen. Thyroid is unremarkab le. No axillary or supraclavicular adenopathy by size. Bones: No aggressive osseous abnormality. Upper Abdomen: Please correlate with CT of abdomen and pelvis findings.. IMPRESSION: 1. No pulmonary bullous. No thoracic aortic aneurysm or dissection. 2. Dependent atelectasis in posterior aspect of bilateral lung arndt. No focal infiltrate, pleural e ffusion or pneumothorax. Mild centrilobular emphysema. 3. Cardiomegaly, no pericardial effusion. No mediastinal or hilar lymphadenopathy. Small hiatal herni a. Reviewed by: Griffin Rowe MD on 11/15/2023 5:22 PM PDT Approved by: Griffin Rowe MD on 11/15/2023 5:22 PM PDT Station ID: [id number]
--- NOTE | 2023-11-15 17:26 | CT Report ---
PROCEDURE: Abdomen/Pelvis W INDICATIONS: Flank pain CONTRAST: 100ml [id number] TECHNIQUE: After the administration of intravenous contrast, a CT scan of the abdomen and pelvis was performed. Images were recorded and evaluated at appropriate window settings. Reformats: coronal and sagittal. F or radiation dose reduction, the following was used: automated exposure control, adjustment of mA and /or kV according to patient size. COMPARISON: 10/26/2020. FINDINGS: Image quality: Diagnostic. Lower chest: Please correlate with CT angiogram of the chest finding. Liver: No solid mass. Gallbladder: No radiopaque stones or wall thickening. Biliary tree: No intrahepatic or extrahepatic dilation, accounting for age. Spleen: No splenomegaly. Pancreas: No pancreatic ductal dilation. Adrenals: No adrenal nodule. Kidneys and ureters: No hydronephrosis. No renal cystic lesion which requires follow up. No solid mas s. Stomach, bowel and peritoneum: There is no bowel obstruction. No abnormal bowel wall thickening or me senteric fat stranding. Colonic diverticulosis is seen without colonic wall thickening or pericolonic fat stranding. No abscess collection. No free fluid of free air. Lymph nodes: No central or retroperitoneal adenopathy. Vessels: No infrarenal aortic aneurysm. Patent portal vein. PELVIS Reproductive organs: Mildly enlarged prostate gland with mass effect on floor of the bladder is seen. . Bladder: No abnormal wall thickening, accounting for underdistention. Pelvic lymph nodes: No pelvic adenopathy by size criteria. Bones: No aggressive osseous abnormality. Chronic appearing anterior wedge compression deformity at L 1 level is seen with up to 30% loss of L1 vertebral body height. Flowing bridging osteophyte formatio n throughout visualized lower thoracic spine is seen suggestive of diffuse idiopathic skeletal hypero stosis. Other: No significant ventral or inguinal hernia. IMPRESSION: 1. No acute inflammatory process is seen in abdomen or pelvis. No bowel obstruction. No free fluid of free air. Sigmoid diverticulosis without evidence of acute diverticulitis. 2. No renal stones or hydronephrosis. 3. Chronic findings as above, not significantly changed from previous studies Reviewed by: Griffin Rowe MD on 11/15/2023 5:25 PM PDT Approved by: Griffin Rowe MD on 11/15/2023 5:25 PM PDT Station ID: [id number]
[2023-11-15 20:07] VITALS: BP 118/74; O2SAT 93
[2023-11-15] MEDS: MAG HYDROX/AL HYDROX/SIMETH 30 ML UDC PO STA (21:49)
[2023-11-15] MEDS: HYDROcod/ACETAM 5/325 MG TABLET PO STA (21:49)
[2023-11-15] MEDS: HYDROcod/ACET 5/325 Prepack 4 PO STA (21:49)
--- NOTE | 2023-11-15 22:44 | Ultrasound Report ---
PROCEDURE: Abdomen Limited INDICATIONS: RUQ pain TECHNIQUE: Real-time focused scanning was performed of the abdomen, with image documentation. COMPARISONS: CT abdomen and pelvis performed the same day FINDINGS: Liver: Liver is normal in size and hyperechoic and parenchymal echotexture. No visible mass. Gallbladder: No gallstones, sludge, wall thickening or pericholecystic edema. Biliary ducts: Intrahepatic bile ducts are non-dilated. Extrahepatic bile duct caliber measures 3.7 mm. The distal common duct could not be seen. Normal is 6-7 mm or less in diameter, or 10 mm or les s post-cholecystectomy. Pancreas: Visualized portions of the pancreas are sonographically normal. Right kidney: Normal in size and echotexture. Right kidney measures 12.4 cm long. No hydronephrosis or nephrolithiasis. No solid masses. No complex renal cystic lesions which require follow-up. IVC: Intrahepatic inferior vena cava is patent. Miscellaneous: No free abdominal fluid. IMPRESSION: Hepatic steatosis. Normal gallbladder. Reviewed by: Betina Her MD on 11/15/2023 10:42 PM PDT Approved by: Betina Her MD on 11/15/2023 10:42 PM PDT Station ID: [id number]
== END 2023-11-15 22:02 | disposition home or self-care (01) ==
LOC: ED 12:26
DX: R10.11 Right upper quadrant pain (principal)
CPT/HCPCS: 36415; 71275; 74177; 76705; 80053; 83690; 84484; 85025; 93005; 99284; 99285; A9270; Q9967